=== PATIENT | female | born 1975 | race American Indian/Alaskan Native ===

== ENCOUNTER 2017-04-13 19:02 | Emergency (ER) | payer SELFPAY ==
[2017-04-14 03:34] LABS: Mean Corpuscular HGB Conc 29 % (30-34); Mean Corpuscular Volume 71 fl (79-97); Platelet Count 297 K/mm3 (140-440); Red Blood Count 3.88 M/mm3 (3.65-5.03)
--- NOTE | 2017-04-14 03:41 | Emergency Department Report ---
- General Chief Complaint: Upper Respiratory Infection Stated Complaint: COLD Time Seen by Provider: 04/14/17 02:45 Source: patient Mode of arrival: Ambulatory Limitations: No Limitations - History of Present Illness Initial Comments: This is a 42-year-old nontoxic, well nourished in appearance, no acute signs of distress presents to the ED with c/o of productive cough, rhinorrhea, nasal congestion, and body aches x2 day. Patient denies productive cough as yellow mucus production. Patient stated has had sick contact with positive flu from . Patient denies any recent travels, long car rides, or recent hospital stays. Patient denies calf pain or calf tenderness. Patient denies drooling or hoarseness. Denies any hemoptysis. Patient denies chest pain, shortness of breath, fever, chills, nausea, vomiting, headache, stiff neck, numbness, tingling. Patient denies any allergies. Denies PMH. MD Complaint: cough, rhinorrhea, nasal congestion -: days(s) (2) Severity: mild Severity scale (0 -10): 8 Quality: aching Consistency: constant Improves With: nothing Worsens With: nothing Context: sick contacts Associated Symptoms: rhinorrhea, nasal congestion, cough. denies: fever, chills , myalgias, diaphoresis, headache, sore throat, stiff neck, chest pain, shortness of breath, abdominal pain, nausea, vomiting, diarrhea, dysuria, rash, confusion, right sweats, weight loss, epistaxis, hoarseness, ear pain Treatments Prior to Arrival: none - Related Data Previous Rx's Medication Instructions Recorded Last Taken Type Ibuprofen [Motrin] 600 mg PO Q8H PRN #30 tablet 04/14/17 Unknown Rx Oseltamivir [Tamiflu] 75 mg PO BID #14 cap 04/14/17 Unknown Rx Allergies Allergy/AdvReac Type Severity Reaction Status Date / Time No Known Allergies Allergy Verified 04/14/17 03:59 ED Review of Systems ROS: Stated complaint: COLD Other details as noted in HPI Constitutional: denies: chills, fever Eyes: denies: eye pain, eye discharge, vision change ENT: denies: ear pain, throat pain Respiratory: cough. denies: shortness of breath, wheezing Cardiovascular: denies: chest pain, palpitations Endocrine: no symptoms reported Gastrointestinal: denies: abdominal pain, nausea, diarrhea Genitourinary: denies: urgency, dysuria, discharge Musculoskeletal: denies: back pain, joint swelling, arthralgia Skin: denies: rash, lesions Neurological: denies: headache, weakness, paresthesias Psychiatric: denies: anxiety, depression Hematological/Lymphatic: denies: easy bleeding, easy bruising ED Past Medical Hx - Past Medical History Previous Medical History?: No - Surgical History Past Surgical History?: Yes Additional Surgical History: tubal ligation 1999 - Social History Smoking Status: Never Smoker Substance Use Type: None - Medications Home Medications: Home Medications Medication Instructions Recorded Confirmed Last Taken Type Ibuprofen [Motrin] 600 mg PO Q8H PRN #30 tablet 04/14/17 Unknown Rx Oseltamivir [Tamiflu] 75 mg PO BID #14 cap 04/14/17 Unknown Rx ED Physical Exam - General Limitations: No Limitations General appearance: alert, in no apparent distress - Head Head exam: Present: atraumatic, normocephalic, normal inspection - Eye Eye exam: Present: normal appearance, PERRL, EOMI. Absent: scleral icterus, conjunctival injection, nystagmus, periorbital swelling, periorbital tenderness Pupils: Present: normal accommodation - ENT ENT exam: Present: normal exam, normal orophraynx, mucous membranes moist, TM's normal bilaterally, normal external ear exam - Neck Neck exam: Present: normal inspection, full ROM. Absent: tenderness, meningismus, lymphadenopathy, thyromegaly - Respiratory Respiratory exam: Present: normal lung sounds bilaterally. Absent: respiratory distress, wheezes, rales, rhonchi, stridor, chest wall tenderness, accessory muscle use, decreased breath sounds, prolonged expiratory - Cardiovascular Cardiovascular Exam: Present: regular rate, normal rhythm, normal heart sounds. Absent: bradycardia, tachycardia, irregular rhythm, systolic murmur, diastolic murmur, rubs, gallop - GI/Abdominal GI/Abdominal exam: Present: soft, normal bowel sounds. Absent: distended, tenderness, guarding, rebound, rigid, diminished bowel sounds - Rectal Rectal exam: Present: deferred - Extremities Exam Extremities exam: Present: normal inspection, full ROM, normal capillary refill. Absent: tenderness, pedal edema, joint swelling, calf tenderness - Back Exam Back exam: Present: normal inspection, full ROM. Absent: tenderness, CVA tenderness (R), CVA tenderness (L), muscle spasm, paraspinal tenderness, vertebral tenderness, rash noted - Neurological Exam Neurological exam: Present: alert, oriented X3, CN II-XII intact, normal gait, reflexes normal - Psychiatric Psychiatric exam: Present: normal affect, normal mood - Skin Skin exam: Present: warm, dry, intact, normal color. Absent: rash ED Course Vital Signs 04/13/17 20:23 Temperature 98.9 F Pulse Rate 87 Respiratory 16 Rate Blood Pressure 111/73 O2 Sat by Pulse 93 Oximetry - Reevaluation(s) Reevaluation #1: 04/14/17 03:44 Patient is speaking in full sentences with no signs of distress noted. ED Medical Decision Making - Lab Data Result diagrams: 04/14/17 02:57 04/14/17 02:57 - Medical Decision Making This is a 42-year-old female that presents with flu like symptoms. Patient is stable and was examined by me. Chest xray has been obtained and dictated by radiologist with normal exam. Patient notified of x-ray results with no question or by the patient. Labs obtained. Patient received potassium chloride 30 meq. Negative influenza swab. Vital signs stable prior to discharge. Patient is afebrile. Normal heart rate. I'll treat patient empirically with Tamiflu due to symptoms at discharge. Patient was orally rehydrated in the ER and patient tolerated well with no signs of nasuea or vomiting. Patient was instructed Follow-up with a primary care doctor in 3-5 days or if symptoms worsen and continue return to emergency room as soon as possible. At time time of discharge, the patient does not seem toxic or ill in appearance. No acute signs of distress noted. Patient agrees to discharge treatment plan of care. No further questions noted by the patient. Critical care attestation.: If time is entered above; I have spent that time in minutes in the direct care of this critically ill patient, excluding procedure time. ED Disposition Clinical Impression: Influenza Disposition: DC-01 TO HOME OR SELFCARE Is pt being admited?: No Does the pt Need Aspirin: No Condition: Stable Instructions: Ibuprofen (By mouth), Electrolyte Supplement (By mouth), Influenza (ED) Additional Instructions: Follow-up with a primary care doctor in 3-5 days or if symptoms worsen and continue return to emergency room as soon as possible. Increase rest, hydration, and take Motrin/Tylenol [id number] if fever presents. Prescriptions: Ibuprofen [Motrin] 600 mg PO Q8H PRN #30 tablet PRN Reason: Pain Oseltamivir [Tamiflu] 75 mg PO BID #14 cap Referrals: PRIMARY CARE, [Primary Care Provider] - 3-5 Days CASSANDRA CHANG MD [Staff Physician] - 3-5 Days [facility] [Outside] - 3-5 Days [facility] [Outside] - 3-5 Days Forms: Work/School Release Form(ED)
[2017-04-14 03:46] LABS: BUN/Creatinine Ratio 18; Blood Urea Nitrogen 9 mg/dL (7-17); Calcium 8.4 mg/dL (8.4-10.2); Hemolysis Index 0
[2017-04-14] MEDS ORDERED: K-DUR PO ONE (03:55)
[2017-04-14 03:58] LABS: Hematocrit 27.4 % (30.3-42.9); Hemoglobin 7.8 gm/dl (10.1-14.3); Mean Corpuscular Hemoglobin 20 pg (28-32); Red Cell Distribution Width 20.3 % (13.2-15.2)
--- NOTE | 2017-04-14 04:13 | XRay Report ---
FINAL REPORT PROCEDURE: XR CHEST ROUTINE 2V TECHNIQUE: PA and lateral chest radiographs were obtained. CPT 21565 HISTORY: cough COMPARISON: No prior studies are available for comparison. FINDINGS: Heart: Normal. Mediastinum/Vessels: Normal. Lungs/Pleural space: Normal. Bony thorax: No acute osseous abnormality. Other: IMPRESSION: Normal examination.
[2017-04-14 05:26] VITALS: BP 115/76
[2017-04-14 05:28] LABS: Anisocytosis 1+; Band Neutrophils # (Manual) 0.3 K/mm3; Basophils % (Manual) 0 % (0.0-1.8); Hypochromasia 2+; Ovalocytes 1+; Total Cells Counted 100
== END 2017-04-14 05:26 | disposition home or self-care (01) ==
LOC: ED 19:02
DX: J11.1 Influenza due to unidentified influenza virus with other respiratory manifestations (principal)
CPT/HCPCS: 36415; 71046; 80048; 85007; 85025; 87400; 99284

== ENCOUNTER 2019-02-24 22:14 | Observation (INO) | payer OTHER ==
--- NOTE | 2019-02-24 23:03 | Emergency Department Report ---
ED Female HPI - General Chief complaint: Vaginal Bleeding Stated complaint: FAINT,FATIGUE,SOB Time Seen by Provider: 02/24/19 22:47 Source: patient Mode of arrival: Ambulatory Limitations: No Limitations - History of Present Illness Initial comments: 44-year-old female with history of anemia, fibroids, presents to ED with heavy vaginal bleeding. Patient states her menstrual period began yesterday, states bleeding became much heavier with multiple large clots today. The patient reported lightheadedness currently is feel as if she is going to pass out. Patient states she received iron infusions last year. Spoke with a sole buffer regarding removal of her fibroids, however she moved out of state to [place] and has not seen a sole buffer here regarding surgery. She reports she takes iron pills daily. MD Complaint: vaginal bleeding -: days(s) (2) Location: suprapubic Severity: severe Quality: cramping Consistency: constant Improves with: none Worsens with: none Are you Now?: No Associated Symptoms: vaginal bleeding, abdominal pain, weakness. denies: nausea/vomiting, fever/chills - Related Data Previous Rx's Medication Instructions Recorded Last Taken Type Ibuprofen [Motrin] 600 mg PO Q8H PRN #30 tablet 04/14/17 Unknown Rx Oseltamivir [Tamiflu] 75 mg PO BID #14 cap 04/14/17 Unknown Rx Allergies Allergy/AdvReac Type Severity Reaction Status Date / Time No Known Allergies Allergy Verified 04/14/17 03:59 ED Review of Systems ROS: Stated complaint: FAINT,FATIGUE,SOB Other details as noted in HPI Comment: All other systems reviewed and negative Constitutional: denies: chills, fever Gastrointestinal: abdominal pain Genitourinary: abnormal menses ED Past Medical Hx - Past Medical History Previous Medical History?: Yes Additional medical history: Uterine Fibroids, Anemia - Surgical History Past Surgical History?: Yes Additional Surgical History: tubal ligation 1999 - Social History Smoking Status: Never Smoker Substance Use Type: None - Medications Home Medications: Home Medications Medication Instructions Recorded Confirmed Last Taken Type Ibuprofen [Motrin] 600 mg PO Q8H PRN #30 tablet 04/14/17 Unknown Rx Oseltamivir [Tamiflu] 75 mg PO BID #14 cap 04/14/17 Unknown Rx ED Physical Exam - General Limitations: No Limitations General appearance: alert, in no apparent distress - Head Head exam: Present: atraumatic, normocephalic - Eye Eye exam: Present: normal appearance, EOMI - ENT ENT exam: Present: mucous membranes moist - Neck Neck exam: Present: normal inspection - Respiratory Respiratory exam: Present: normal lung sounds bilaterally. Absent: respiratory distress - Cardiovascular Cardiovascular Exam: Present: regular rate, normal rhythm - GI/Abdominal GI/Abdominal exam: Present: soft, tenderness (mild suprapubic). Absent: distended - Speculum exam: Present: vaginal bleeding (mild), other (clots present) - Extremities Exam Extremities exam: Present: normal inspection - Neurological Exam Neurological exam: Present: alert, oriented X3 - Psychiatric Psychiatric exam: Present: normal affect, normal mood - Skin Skin exam: Present: warm, dry, intact, normal color ED Course Vital Signs 02/24/19 22:22 Temperature 97.9 F Pulse Rate 84 Respiratory 18 Rate Blood Pressure 127/67 O2 Sat by Pulse 100 Oximetry ED Medical Decision Making - Lab Data Result diagrams: 02/24/19 23:32 02/24/19 23:32 - Medical Decision Making 44 yo F w/ hx of uterine fibroids, anemia, heavy menstrual periods. She presents with dizziness and lightheadedness for the last day. She is currently on her period and states that it is heavier than usual with large clots. Vitals are normal. test is negative. Hemoglobin resulted at 4.7. Pt agrees to blood transfusion. Two units of PRBCs ordered. Spoke w/ hospitalist, Dr Holliday, for admission. - Differential Diagnosis anemia, miscarriage, menorrhagia Critical Care Time: Yes Critical care time in (mins) excluding proc time.: 35 Critical care attestation.: If time is entered above; I have spent that time in minutes in the direct care of this critically ill patient, excluding procedure time. Critical Care Time: 35 minutes ED Disposition Clinical Impression: Symptomatic anemia, Menorrhagia Disposition: OP ADMIT IP TO THIS HOSP Is pt being admited?: Yes Condition: Stable Referrals: PRIMARY CARE, [Primary Care Provider] - 3-5 Days Time of Disposition: 01:16
[2019-02-25 00:15] LABS: Basophils % (Auto) 0.6 % (0.0-1.8); Eosinophils # (Auto) 0.2 K/mm3 (0.0-0.4); Eosinophils % (Auto) 2.8 % (0.0-4.3); Lymphocytes % (Auto) 16.4 % (13.4-35.0); Mean Corpuscular HGB Conc 27 % (30-34); Monocytes # (Auto) 0.3 K/mm3 (0.0-0.8); Platelet Count 280 K/mm3 (140-440); Red Blood Count 2.82 M/mm3 (3.65-5.03)
[2019-02-25 00:26] LABS: Mean Corpuscular Volume 63 fl (79-97)
[2019-02-25 00:30] LABS: BUN/Creatinine Ratio 15; Blood Urea Nitrogen 9 mg/dL (7-17); Hemolysis Index 45
[2019-02-25 00:32] LABS: Red Cell Distribution Width 20.6 % (13.2-15.2)
[2019-02-25 00:35] LABS: Hematocrit 17.8 % (30.3-42.9); Hemoglobin 4.7 gm/dl (10.1-14.3)
[2019-02-25] MEDS ORDERED: SODIUM CHLORIDE 0.9% 500 ML 500 ML IV ONE (00:36)
[2019-02-25] MEDS ORDERED: ONDANSETRON 4 MG/2 ML INJ IV PRN (01:59)
[2019-02-25] MEDS ORDERED: ACETAMINOPHEN 325 MG TAB PO PRN (01:59)
[2019-02-25] MEDS ORDERED: oxyCODONE /ACETAMINOPHEN 5-325MG TAB PO PRN (01:59)
--- NOTE | 2019-02-25 02:01 | History and Physical Report ---
History of Present Illness History of present illness: 44-year-old woman with a history of anemia, menorrhagia, fibroids comes emergency room with complaints of dizziness, shortness of breath, dyspnea on exertion that started 2 days ago. Patient states that her cycle started, it is heavier than normal with clots in it. States she is compliant with her iron, fish oil and vitamin C therapy. She is never been transfused blood before Review of systems Constitutional: no weight loss, chills, fever Ears, eyes, nose, mouth and throat: no nasal congestion, no nasal discharge, no sinus pressure, no vision change, no red eye. Neck: No neck pain or rigidity. Cardiovascular: no palpitations Respiratory: no cough Gastrointestinal: no hematochezia, abdominal pain Genitourinary : no frequency , no hematuria Musculoskeletal: no joint swelling or muscle ache Integumentary: no rash, no pruritis Neurological: no parathesias, no focal weakness Endocrine: no cold or heat intolerance, no polyuria or polydipsia Hematologic/Lymphatic: no easy bruising, no easy bleeding, no gland swelling Allergic/Immunologic: no urticaria, no angioedema. PAST MEDICAL HISTORY: anemia, menorrhagia, fibroids PAST SURGICAL HISTORY: Tubal ligation SOCIAL HISTORY: Denies alcohol, drugs, tobacco FAMILY HISTORY: Hypertension Medications and Allergies Allergies Allergy/AdvReac Type Severity Reaction Status Date / Time No Known Allergies Allergy Verified 04/14/17 03:59 Home Medications Medication Instructions Recorded Confirmed Last Taken Type Ibuprofen [Motrin] 600 mg PO Q8H PRN #30 tablet 04/14/17 Unknown Rx Oseltamivir [Tamiflu] 75 mg PO BID #14 cap 04/14/17 Unknown Rx Exam - Physical Exam Narrative exam: General Apperance: The patient sitting in bed no acute distress HEENT: Normocephalic, atraumatic. Pupils equally round and reactive to light, extraocular movement intact, and no sclericterus or JVD or thyromegaly or nodule. Neck supple, no carotid bruit, mucous membranes moist, no exudate or erythema Heart: S1-S2, regular is rhythm Lungs: Clear to auscultation bilaterally, breathing comfortable Abdomen: Positive bowel sounds, soft, nontender, nondistended, no organomegaly Extremities: No edema cyanosis clubbing Skin: no rash, nodule, warm and dry Neuro:CN 2 -12 intact, motor/sensory intact, speech is fluent - Constitutional Vitals: Temp Pulse Resp BP Pulse Ox 97.9 F 84 18 127/67 98 02/24/19 22:22 02/24/19 22:22 02/25/19 01:57 02/24/19 22:22 02/25/19 01:57 Results - Labs CBC & Chem 7: 02/24/19 23:32 02/24/19 23:32 Labs: Abnormal lab results 02/24/19 02/24/19 02/24/19 Range/Units 23:32 23:32 23:32 RBC 2.82 L (3.65-5.03) M/mm3 Hgb 4.7 L* (10.1-14.3) gm/dl Hct 17.8 L* (30.3-42.9) % MCV 63 L (79-97) fl MCH 17 L (28-32) pg MCHC 27 L (30-34) % RDW 20.6 H (13.2-15.2) % Lymph # 1.0 L (1.2-5.4) K/mm3 Seg Neutrophils % 75.2 H (40.0-70.0) % Carbon Dioxide 20 L (22-30) mmol/L Creatinine 0.6 L (0.7-1.2) mg/dL Glucose 118 H (65-100) mg/dL Calcium 8.0 L (8.4-10.2) mg/dL Crossmatch See Detail Assessment and Plan Assessment Acute blood loss anemia secondary to menorrhagia Transfuse packed red blood cells, continue iron therapy Premedicated prior to transfusion, check PT/INR DVT prophylaxis
[2019-02-25] MEDS ORDERED: diphenhydrAMINE 50 MG/ML VIAL IV PRN (02:02)
[2019-02-25 03:11] LABS: INR 1.21 (0.87-1.13)
[2019-02-25 03:12] LABS: Partial Thromboplastin Time 28.3 Sec. (24.2-36.6)
[2019-02-25] MEDS ORDERED: SODIUM CHLORIDE 0.9% 500 ML 500 ML IV NR (09:00)
--- NOTE | 2019-02-25 14:54 | Discharge Summary ---
Providers - Providers Date of Admission: 02/25/19 01:59 Date of discharge: 02/25/19 Attending physician: AD ARBOLEDA Primary care physician: ENGINEER CONDUCTOR Hospitalization Reason for admission: Symptomatic severe anemia Condition: Fair Procedures: Blood transfusion Hospital course: 44-year-old woman with a history of anemia, menorrhagia, fibroids comes emergency room with complaints of dizziness, shortness of breath, dyspnea on exertion that started 2 days ago. Patient states that her cycle started, it is heavier than normal with clots in it. States she is compliant with her iron, fish oil and vitamin C therapy. She is never been transfused blood before.Initial w/u consistant with severe anemia Hb 4.7,due to menorrhagia. Admitted appropriately managed,received 3 units of PRBC transfusion. Hb improved to 8.4. Patient advised to see BAND ATTACHER for further evaluation of menorrhagia and fibroid uterus. Today patient feels ,better,no new complaints,vital signs stable. Cleared for discharge. Stable at discharge. Discharge Diagnosis: --Symptomatic Anemia: s/p transfusion,symptoms resolved --Acute blood loss anemia: S/P blood transfusion,ferrous sulfate. --Menorrhagia/Fibroid Uterus: advised to see BAND ATTACHER upon DC for further evaln and management --Obesity : BMI 37.6 advised weight reduction Stable at discharge Disposition: DC-01 TO HOME OR SELFCARE Time spent for discharge: 32 min Core Measure Documentation - Palliative Care Palliative Care/ Comfort Measures: Not Applicable - Core Measures Any of the following diagnoses?: none Exam - Constitutional Vitals: Temp Pulse Resp BP Pulse Ox 97.6 F 85 20 117/68 100 02/25/19 14:30 02/25/19 14:30 02/25/19 14:30 02/25/19 14:30 02/25/19 14:00 General appearance: Present: no acute distress, well-nourished - EENT Eyes: Present: PERRL, EOM intact - Neck Neck: Present: supple, normal ROM - Respiratory Respiratory effort: normal Respiratory: bilateral: diminished, negative: rales, rhonchi, wheezing - Cardiovascular Rhythm: regular Heart Sounds: Present: S1 & S2 - Extremities Extremities: no ischemia, No edema Extremity abnormal: edema, cyanosis - Abdominal General gastrointestinal: Present: soft, non-tender, non-distended, normal bowel sounds - Integumentary Integumentary: Present: clear, warm - Musculoskeletal Musculoskeletal: strength equal bilaterally - Psychiatric Psychiatric: appropriate mood/affect, cooperative - Neurologic Neurologic: CNII-XII intact, moves all extremities Plan Activity: no restrictions Diet: regular Additional Instructions: Advised to see private BAND ATTACHER for further evaluation and management of menorrhagia and fibroid uterus Follow up with: PRIMARY CARE, [Primary Care Provider] - 3-5 Days DWIGHT HERNANDEZ MD [Staff Physician] - 7 Days Forms: Work/School Release Form Prescriptions: Ferrous Sulfate [Feosol 325 MG tab] 325 mg PO BID #60 tablet
[2019-02-25 17:23] LABS: BUN/Creatinine Ratio 13; Blood Urea Nitrogen 8 mg/dL (7-17); Calcium 8.2 mg/dL (8.4-10.2); Hemolysis Index 2
[2019-02-25 17:30] LABS: Hematocrit 27.2 % (30.3-42.9); Hemoglobin 8.4 gm/dl (10.1-14.3); Mean Corpuscular HGB Conc 31 % (30-34); Mean Corpuscular Volume 73 fl (79-97); Platelet Count 247 K/mm3 (140-440); Red Blood Count 3.75 M/mm3 (3.65-5.03)
[2019-02-25 18:39] VITALS: BP 106/46
[2019-02-25 19:28] LABS: Anisocytosis 1+; Hypochromasia 1+; Ovalocytes Few; Total Cells Counted 100
[2019-02-25 19:29] LABS: Large Platelets Few; Macrocytosis Few; Platelet Estimate Consistent w Auto
== END 2019-02-25 18:55 | disposition home or self-care (01) ==
LOC: ED 22:14 → 3A 02-25 01:59
PROVIDERS: ADMIT Internal Medicine; ATTEND Internal Medicine
DX: D62 Acute posthemorrhagic anemia (principal); N92.0 Excessive and frequent menstruation with regular cycle; D25.9 Leiomyoma of uterus, unspecified; N93.9 Abnormal uterine and vaginal bleeding, unspecified; Z98.51 Tubal ligation status
CPT/HCPCS: 36415; 36430; 80048; 84703; 85007; 85025; 85610; 85730; 86850; 86900; 86901; 86920; 99291; G0378; J7040; P9016

== ENCOUNTER 2019-06-02 11:41 | Emergency (ER) | payer SELFPAY ==
--- NOTE | 2019-06-02 11:58 | Event Note ---
ED Screening Note Date of service: 06/02/19 Time: 11:54 ED Screening Note: 44 y/o female comes in for feeling weak. Has history of anemia with blood transfusion recent in February 2019. This initial assessment/diagnostic orders/clinical plan/treatment(s) is/are subject to change based on patients health status, clinical progression and re- assessment by fellow clinical providers in the ED. Further treatment and workup at subsequent clinical providers discretion. Patient/guardian urged not to elope from the ED as their condition may be serious if not clinically assessed and managed. Initial orders include: cbc, cmp, type and screen, ua, Pt,PTT
[2019-06-02 12:23] LABS: Basophils % (Auto) 0.8 % (0.0-1.8); Eosinophils # (Auto) 0.1 K/mm3 (0.0-0.4); Eosinophils % (Auto) 1.9 % (0.0-4.3); Lymphocytes # (Auto) 1.3 K/mm3 (1.2-5.4); Lymphocytes % (Auto) 24.7 % (13.4-35.0); Mean Corpuscular HGB Conc 29 % (30-34); Mean Corpuscular Volume 71 fl (79-97); Monocytes # (Auto) 0.3 K/mm3 (0.0-0.8); Monocytes % (Auto) 5.2 % (0.0-7.3); Platelet Count 392 K/mm3 (140-440); Red Blood Count 2.96 M/mm3 (3.65-5.03)
[2019-06-02 12:49] LABS: INR 1.09 (0.87-1.13); Partial Thromboplastin Time 29.9 Sec. (24.2-36.6)
[2019-06-02 12:51] LABS: Alanine Aminotransferase 8 units/L (7-56); Albumin 4.4 g/dL (3.9-5); BUN/Creatinine Ratio 15; Blood Urea Nitrogen 9 mg/dL (7-17); Calcium 9.1 mg/dL (8.4-10.2); Hemolysis Index 0
[2019-06-02 13:10] LABS: Bilirubin,Urine NEG (Negative); Blood,Urine SM (Negative); Color,Urine Yellow (Yellow); Mucus,Urine 3+ /HPF
[2019-06-02] MEDS ORDERED: SODIUM CHLORIDE 0.9% 500 ML 500 ML IV ONE ×2 (15:48→20:07)
--- NOTE | 2019-06-02 15:53 | Emergency Department Report ---
ED General Adult HPI - General Chief complaint: Weakness Stated complaint: ANEMIA Time Seen by Provider: 06/02/19 11:54 Source: patient Mode of arrival: Ambulatory Limitations: No Limitations - History of Present Illness Initial comments: Patient is 44 years old female with history of chronic anemia secondary to chronic vaginal bleeding secondary to heavy menstruation secondary to fibroid. Patient presented to the ER complaining of generalized weakness for the last few days. Patient stated that her cycle ended 5 days ago but it was heavy with clot s. Patient was admitted here last year for the same problem with a hemoglobin at that time of 4.3. Patient received 3 units of PRBC. Patient denies any shortness of breath, chest pain, fever or chills. No hematemesis, hematochezia, melena or hematuria. 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 - Related Data Home Medications Medication Instructions Recorded Confirmed Last Taken Iron [Iron 18 MG TAB] 18 mg PO QDAY 02/25/19 02/25/19 Unknown Previous Rx's Medication Instructions Recorded Last Taken Type Ferrous Sulfate [Feosol 325 MG tab] 325 mg PO BID #60 tablet 02/25/19 Unknown Rx Allergies Allergy/AdvReac Type Severity Reaction Status Date / Time No Known Allergies Allergy Verified 04/14/17 03:59 ED Review of Systems ROS: Stated complaint: ANEMIA Other details as noted in HPI Comment: All other systems reviewed and negative Constitutional: denies: chills, fever Respiratory: denies: cough, shortness of breath, SOB with exertion, SOB at rest Cardiovascular: denies: chest pain, palpitations Gastrointestinal: denies: abdominal pain, nausea, vomiting Musculoskeletal: denies: back pain Neurological: weakness. denies: headache, numbness, paresthesias, confusion, abnormal gait ED Past Medical Hx - Past Medical History Previous Medical History?: Yes Additional medical history: Uterine Fibroids, Anemia - Surgical History Past Surgical History?: Yes Additional Surgical History: tubal ligation 1999 - Social History Smoking Status: Never Smoker Substance Use Type: Prescribed - Medications Home Medications: Home Medications Medication Instructions Recorded Confirmed Last Taken Type Ferrous Sulfate [Feosol 325 MG tab] 325 mg PO BID #60 tablet 02/25/19 Unknown Rx Iron [Iron 18 MG TAB] 18 mg PO QDAY 02/25/19 02/25/19 Unknown History ED Physical Exam - General Limitations: No Limitations General appearance: alert, in no apparent distress - Head Head exam: Present: atraumatic, normocephalic, normal inspection - Eye Eye exam: Present: other (Pale conjunctive.) - ENT ENT exam: Present: normal exam, normal orophraynx, mucous membranes moist - Neck Neck exam: Present: normal inspection. Absent: tenderness, meningismus - Respiratory Respiratory exam: Present: normal lung sounds bilaterally - Cardiovascular Cardiovascular Exam: Present: regular rate, normal rhythm, normal heart sounds - GI/Abdominal GI/Abdominal exam: Present: soft, normal bowel sounds. Absent: distended, tenderness, guarding, rebound, rigid, organomegaly, mass, bruit, pulsatile mass, hernia - Extremities Exam Extremities exam: Present: normal inspection, full ROM, normal capillary refill. Absent: pedal edema, calf tenderness - Back Exam Back exam: Present: normal inspection, full ROM. Absent: CVA tenderness (R), CVA tenderness (L) - Neurological Exam Neurological exam: Present: alert, oriented X3, CN II-XII intact, normal gait, reflexes normal. Absent: motor sensory deficit - Psychiatric Psychiatric exam: Present: normal mood - Skin Skin exam: Present: warm, intact, normal color ED Course Vital Signs 06/02/19 06/02/19 06/02/19 11:44 15:57 16:00 Temperature 98.5 F Pulse Rate 109 H 71 Respiratory 18 15 18 Rate Blood Pressure 120/82 111/72 Blood Pressure [Right] O2 Sat by Pulse 100 100 96 Oximetry 06/02/19 06/02/19 06/02/19 16:16 16:30 16:43 Temperature 98.2 F Pulse Rate 70 74 79 Respiratory 18 18 13 Rate Blood Pressure 103/61 109/68 101/74 Blood Pressure [Right] O2 Sat by Pulse 100 100 Oximetry 06/02/19 06/02/19 06/02/19 16:46 16:52 16:55 Temperature 98.5 F 98.5 F Pulse Rate 76 70 74 Respiratory 20 17 20 Rate Blood Pressure 101/74 108/73 114/78 Blood Pressure [Right] O2 Sat by Pulse 100 100 100 Oximetry 06/02/19 06/02/19 06/02/19 17:00 17:16 17:30 Temperature Pulse Rate 74 72 85 Respiratory 17 19 14 Rate Blood Pressure 102/50 122/59 110/48 Blood Pressure [Right] O2 Sat by Pulse 100 100 100 Oximetry 06/02/19 06/02/19 06/02/19 17:34 17:46 18:00 Temperature Pulse Rate 75 69 70 Respiratory 15 15 18 Rate Blood Pressure 110/48 110/74 Blood Pressure 110/48 [Right] O2 Sat by Pulse 100 100 100 Oximetry 06/02/19 06/02/19 06/02/19 18:16 19:00 19:16 Temperature Pulse Rate 70 83 74 Respiratory 20 17 13 Rate Blood Pressure 110/74 119/70 131/24 Blood Pressure [Right] O2 Sat by Pulse 98 100 100 Oximetry 06/02/19 06/02/19 06/02/19 19:30 19:46 20:00 Temperature Pulse Rate 77 84 89 Respiratory 19 20 19 Rate Blood Pressure 104/69 104/69 120/73 Blood Pressure [Right] O2 Sat by Pulse 100 100 100 Oximetry 06/02/19 20:16 Temperature Pulse Rate 88 Respiratory 21 Rate Blood Pressure 120/73 Blood Pressure [Right] O2 Sat by Pulse 100 Oximetry ED Medical Decision Making - Lab Data Result diagrams: 06/02/19 19:35 06/02/19 12:06 - Medical Decision Making Patient is 44 years old female with history of chronic anemia secondary to chronic vaginal bleeding secondary to heavy menstruation secondary to fibroid. Patient presented to the ER complaining of generalized weakness for the last few days. Patient stated that her cycle ended 5 days ago but it was heavy with clots. Patient was admitted here last year for the same problem with a hemoglobin at that time of 4.3. Patient received 3 units of PRBC. Patient denies any shortness of breath, chest pain, fever or chills. No hematemesis, hematochezia, melena or hematuria. 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 Patient received 1 units of PRBC with mild increase in hemoglobin to 6.4. No other units of PRBC ordered. Critical care attestation.: If time is entered above; I have spent that time in minutes in the direct care of this critically ill patient, excluding procedure time. ED Disposition Clinical Impression: Symptomatic anemia, Menorrhagia Disposition: - TO HOME OR SELFCARE Is pt being admited?: No Condition: Stable Instructions: Iron Deficiency Anemia (ED), Anemia (ED), Iron Rich Diet (ED) Referrals: PRIMARY CARE, [Primary Care Provider] - 3-5 Days
[2019-06-02 19:50] LABS: Hematocrit 21.9 % (30.3-42.9); Hemoglobin 6.4 gm/dl (10.1-14.3); Mean Corpuscular HGB Conc 29 % (30-34); Mean Corpuscular Volume 74 fl (79-97); Platelet Count 304 K/mm3 (140-440); Red Blood Count 2.97 M/mm3 (3.65-5.03)
[2019-06-02 19:52] LABS: Red Cell Distribution Width 22.6 % (13.2-15.2)
[2019-06-02 23:36] VITALS: BP 138/75
== END 2019-06-02 23:38 | disposition home or self-care (01) ==
LOC: ED 11:41
DX: N92.0 Excessive and frequent menstruation with regular cycle (principal); D64.89 Other specified anemias; Z98.51 Tubal ligation status; Z79.899 Other long term (current) drug therapy
CPT/HCPCS: 36415; 36430; 80053; 81001; 85025; 85027; 85610; 85730; 86850; 86900; 86901; 86920; 99283; J7040; P9016

== ENCOUNTER 2019-11-06 15:29 | Emergency (ER) | payer SELFPAY ==
[2019-11-06 15:46] VITALS: BP 121/78
--- NOTE | 2019-11-06 16:42 | Event Note ---
ED Screening Note Date of service: 11/06/19 Time: 16:41 ED Screening Note: 34-year-old female with a history of anemia with history of transfusion here x2 presents the ED complaining of fatigue and weakness. This initial assessment/diagnostic orders/clinical plan/treatment(s) is/are subject to change based on patients health status, clinical progression and re- assessment by fellow clinical providers in the ED. Further treatment and workup at subsequent clinical providers discretion. Patient/guardian urged not to elope from the ED as their condition may be serious if not clinically assessed and managed. Initial orders include: CBC, BMP type and screen
[2019-11-06 18:27] LABS: Basophils % (Auto) 0.7 % (0.0-1.8); Eosinophils # (Auto) 0.2 K/mm3 (0.0-0.4); Eosinophils % (Auto) 3.8 % (0.0-4.3); Lymphocytes # (Auto) 1.4 K/mm3 (1.2-5.4); Lymphocytes % (Auto) 24.5 % (13.4-35.0); Mean Corpuscular HGB Conc 28 % (30-34); Monocytes # (Auto) 0.4 K/mm3 (0.0-0.8); Monocytes % (Auto) 7.3 % (0.0-7.3); Platelet Count 238 K/mm3 (140-440); Red Blood Count 3.75 M/mm3 (3.65-5.03)
[2019-11-06 18:37] LABS: INR 1.04 (0.87-1.13)
[2019-11-06 18:38] LABS: Partial Thromboplastin Time 25.4 Sec. (24.2-36.6)
[2019-11-06 18:40] LABS: Hematocrit 23.5 % (30.3-42.9); Hemoglobin 6.7 gm/dl (10.1-14.3); Mean Corpuscular Volume 63 fl (79-97); Red Cell Distribution Width 20.7 % (13.2-15.2)
[2019-11-06 18:41] LABS: Blood Urea Nitrogen 9 mg/dL (7-17); Calcium 8.9 mg/dL (8.4-10.2); Hemolysis Index 1
[2019-11-06 18:44] LABS: BUN/Creatinine Ratio 13
--- NOTE | 2019-11-06 23:27 | Emergency Department Report ---
- General Chief complaint: Medical Clearance Stated complaint: WEAKNESS Time Seen by Provider: 11/06/19 22:31 Source: patient Mode of arrival: Ambulatory Limitations: No Limitations - History of Present Illness Initial comments: Chief complaint "I think my hemoglobin is low." HPI: This is a 44-year-old female with history of iron deficiency anemia who presents with generalized weakness. She recently lost healthcare insurance. 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 She was receiving iron transfusionS for outpatient treatment. 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 She feels drained. She does not feel as drained as when she had hemoglobin of 4 in February. Complaint: generalized weakness -: week(s) (Several weeks) Consistency: constant Worsens with: exertion Associated Symptoms: denies other symptoms - Related Data Home Medications Medication Instructions Recorded Confirmed Last Taken Iron [Iron 18 MG TAB] 18 mg PO QDAY 02/25/19 02/25/19 Unknown Previous Rx's Medication Instructions Recorded Last Taken Type Ferrous Sulfate [Feosol 325 MG tab] 325 mg PO BID #60 tablet 02/25/19 Unknown Rx Docusate Sodium [Colace] 100 mg PO BID PRN #60 capsule 06/02/19 Unknown Rx Ferrous Sulfate [Ferrous Sulfate 324 mg PO DAILY #30 tablet. 06/02/19 Unknown Rx 324 MG] Allergies Allergy/AdvReac Type Severity Reaction Status Date / Time No Known Allergies Allergy Verified 04/14/17 03:59 ED Review of Systems ROS: Stated complaint: WEAKNESS Other details as noted in HPI Comment: All other systems reviewed and negative Constitutional: denies: fever, malaise Respiratory: denies: cough, shortness of breath Cardiovascular: denies: chest pain Gastrointestinal: denies: abdominal pain, nausea, vomiting ED Past Medical Hx - Past Medical History Previous Medical History?: Yes Additional medical history: Uterine Fibroids, Anemia - Surgical History Additional Surgical History: tubal ligation 1999 - Social History Smoking Status: Never Smoker Substance Use Type: None - Medications Home Medications: Home Medications Medication Instructions Recorded Confirmed Last Taken Type Ferrous Sulfate [Feosol 325 MG tab] 325 mg PO BID #60 tablet 02/25/19 Unknown Rx Iron [Iron 18 MG TAB] 18 mg PO QDAY 02/25/19 02/25/19 Unknown History Docusate Sodium [Colace] 100 mg PO BID PRN #60 capsule 06/02/19 Unknown Rx Ferrous Sulfate [Ferrous Sulfate 324 mg PO DAILY #30 tablet. 06/02/19 Unknown Rx 324 MG] ED Physical Exam - General Limitations: No Limitations General appearance: alert, in no apparent distress - Head Head exam: Present: atraumatic, normocephalic - Eye Eye exam: Present: normal appearance - ENT ENT exam: Present: mucous membranes moist - Neck Neck exam: Present: normal inspection, full ROM - Respiratory Respiratory exam: Present: normal lung sounds bilaterally. Absent: respiratory distress, wheezes, rales, rhonchi - Cardiovascular Cardiovascular Exam: Present: regular rate, normal rhythm, normal heart sounds. Absent: systolic murmur, diastolic murmur, rubs, gallop - GI/Abdominal GI/Abdominal exam: Present: soft, normal bowel sounds. Absent: distended, tenderness, guarding, rebound - Extremities Exam Extremities exam: Present: normal inspection - Neurological Exam Neurological exam: Present: alert, oriented X3 - Psychiatric Psychiatric exam: Present: normal affect, normal mood - Skin Skin exam: Present: warm, dry, intact, normal color. Absent: rash ED Course Vital Signs 11/06/19 11/06/19 15:45 16:41 Temperature 99.2 F 99.2 F Pulse Rate 99 H 89 Respiratory 16 18 Rate Blood Pressure 121/78 121/78 O2 Sat by Pulse 98 100 Oximetry ED Medical Decision Making - Lab Data Result diagrams: 11/06/19 17:43 11/06/19 17:43 Laboratory Last Values WBC 5.9 K/mm3 (4.5-11.0) 11/06/19 17:43 RBC 3.75 M/mm3 (3.65-5.03) 11/06/19 17:43 Hgb 6.7 gm/dl (10.1-14.3) L 11/06/19 17:43 Hct 23.5 % (30.3-42.9) L 11/06/19 17:43 MCV 63 fl (79-97) L 11/06/19 17:43 MCH 18 pg (28-32) L 11/06/19 17:43 MCHC 28 % (30-34) L 11/06/19 17:43 RDW 20.7 % (13.2-15.2) H 11/06/19 17:43 Plt Count 238 K/mm3 (140-440) 11/06/19 17:43 Lymph % (Auto) 24.5 % (13.4-35.0) 11/06/19 17:43 Rhea % (Auto) 7.3 % (0.0-7.3) 11/06/19 17:43 Eos % (Auto) 3.8 % (0.0-4.3) 11/06/19 17:43 Baso % (Auto) 0.7 % (0.0-1.8) 11/06/19 17:43 Lymph # 1.4 K/mm3 (1.2-5.4) 11/06/19 17:43 Rhea # 0.4 K/mm3 (0.0-0.8) 11/06/19 17:43 Eos # 0.2 K/mm3 (0.0-0.4) 11/06/19 17:43 Baso # 0.0 K/mm3 (0.0-0.1) 11/06/19 17:43 Seg Neutrophils % 63.7 % (40.0-70.0) 11/06/19 17:43 Seg Neutrophils # 3.7 K/mm3 (1.8-7.7) 11/06/19 17:43 PT 13.7 Sec. (12.2-14.9) 11/06/19 17:43 INR 1.04 (0.87-1.13) 11/06/19 17:43 APTT 25.4 Sec. (24.2-36.6) 11/06/19 17:43 Sodium 138 mmol/L (137-145) 11/06/19 17:43 Potassium 3.7 mmol/L (3.6-5.0) 11/06/19 17:43 Chloride 102.8 mmol/L (98-107) 11/06/19 17:43 Carbon Dioxide 23 mmol/L (22-30) 11/06/19 17:43 Anion Gap 16 mmol/L 11/06/19 17:43 BUN 9 mg/dL (7-17) 11/06/19 17:43 Creatinine 0.7 mg/dL (0.6-1.2) 11/06/19 17:43 Estimated GFR > 60 ml/min 11/06/19 17:43 BUN/Creatinine Ratio 13 % 11/06/19 17:43 Glucose 88 mg/dL (65-100) 11/06/19 17:43 Calcium 8.9 mg/dL (8.4-10.2) 11/06/19 17:43 - Medical Decision Making This is a 44-year-old female who presents with generalized weakness with mild anemia hemoglobin 6.7 today. No infectious or anginal symptoms. I strongly recommended oral iron supplementation. No urgent need for tra nsfusion at this time. She is ambulatory without difficulty. No evidence of orthostasis. 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 I strongly recommended outpatient iron infusion therapy. Critical care attestation.: If time is entered above; I have spent that time in minutes in the direct care of this critically ill patient, excluding procedure time. ED Disposition Clinical Impression: Iron deficiency anemia Disposition: DC-01 TO HOME OR SELFCARE Is pt being admited?: No Does the pt Need Aspirin: No Condition: Stable Instructions: Iron Rich Diet (ED), Iron Deficiency Anemia (ED) Referrals: ESTHER KENNEY NP [Advanced Practice Nurse] - 3-5 Days MARTÍN WYNN MD [Referring] - 3-5 Days
== END 2019-11-06 23:39 | disposition home or self-care (01) ==
LOC: ED 15:29
DX: D50.9 Iron deficiency anemia, unspecified (principal); Z98.51 Tubal ligation status; Z79.899 Other long term (current) drug therapy
CPT/HCPCS: 36415; 80048; 85025; 85610; 85730; 99283